=== PATIENT | female | born 1985 | race Caucasian/White ===

== ENCOUNTER 2017-01-30 19:21 | Emergency (ER) | payer MEDICAID ==
[~2017-01-30] VITALS: Ht 170.2 cm; Wt 86.3 kg
[~2017-01-30 19:21] MED LIST: FERR-55 PO; FOL8 PO; PREN1TAB17 PO
[2017-01-30 19:40] VITALS: Ht 170.2 cm; Wt 86.3 kg
--- NOTE | 2017-01-30 19:59 | ERD ---
ER Documentation Chief Complaint Date/Time DATE: 01/30/17 TIME: 19:56 Chief Complaint LLQ ABD PAIN INTERMITTENT X3 MONTHS HPI 31-year-old female presents here in emergency department for complaints of left lower quadrant abdominal pain radiate into her right lower quadrant for 3 months now, worsening last 2 days. Patient's complaining of nausea but denies any vomiting. Patient denies any constipation or diarrhea. Patient denies any flank pain. Patient does not have any fever or chills. Patient denies hematuria or dysuria. Patient denies any vaginal discharge. ROS All systems reviewed and are negative except as per history of present illness. Medications Home Meds Reported Medications Folic Acid* (Folic Acid*) 0.8 Mg Tablet, 0.8 MG PO DAILY 09/03/13 Ferrous Sulfate* (Ferrous Sulfate*) 325 Mg Tablet, 325 MG PO DAILY 08/29/13 Vit-Iron Fumarate-FA ( Tablet) 1 Each Tablet, 1 EACH PO DAILY 08/29/13 Allergies Allergies: Coded Allergies: No Known Allergy (Unverified , 03/02/15) PMhx/Soc Medical and Surgical Hx: pt denies Medical Hx History of Surgery: Yes (2 ) Anesthesia Reaction: No Hx Neurological Disorder: No Hx Respiratory Disorders: No Hx Cardiac Disorders: No Hx Psychiatric Problems: No Hx Miscellaneous Medical Probl: No Hx Alcohol Use: No Hx Substance Use: No Hx Tobacco Use: No Smoking Status: Never smoker FmHx Family History: No coronary disease, No diabetes, No other Physical Exam Vitals Vital Signs Date Time Temp Pulse Resp B/P Pulse Ox O2 Delivery O2 Flow Rate FiO2 01/30/17 19:40 98.6 85 20 129/64 100 Physical Exam GENERAL: The patient is well developed and appropriate for usual state of health, in no apparent distress. CHEST: Clear to auscultation bilaterally. There are no rales, wheezes or rhonchi. HEART: Regular rate and rhythm. No murmurs, clicks, rubs or gallops. No S3 or S4. ABDOMEN: Soft, nontender and nondistended. Good bowel sounds. No rebound or guarding. No gross peritonitis. No gross organomegaly or masses. No Warren sign or McBurney point tenderness. BACK: No midline or flank tenderness. EXTREMITIES: Equal pulses bilaterally. There is no peripheral clubbing, cyanosis or edema. No focal swelling or erythema. Full range of motion. Grossly neurovascularly intact. NEURO: Alert and oriented. Cranial nerves 2-12 intact. Motor strength in all 4 extremities with 5/5 strength. Sensation grossly intact. Normal speech and gait. SKIN: There is no apparent rash or petechia. The skin is warm and dry. HEMATOLOGIC AND LYMPHATIC: There is no evidence of excessive bruising or lymphedema. No gross cervical, axillary, or inguinal lymphadenopathy. Result Diagram: 01/30/17201701/30/172017 Results 24 hrs Laboratory Tests Test 01/30/17 20:18 Alanine Aminotransferase (ALT/SGPT) 50IU/L Albumin 4.2g/dl Albumin/Globulin Ratio 1.27 Alkaline Phosphatase 77IU/L Anion Gap 16 Aspartate Amino Transf (AST/SGOT) 29IU/L Basophils # 0.010^3/ul Basophils % 0.3% Blood Urea Nitrogen 11mg/dl Calcium Level 9.2mg/dl Carbon Dioxide Level 28mmol/L Chloride Level 102mmol/L Creatinine 0.73mg/dl Direct Bilirubin 0.00mg/dl Eosinophils # 0.110^3/ul Eosinophils % 0.9% Globulin 3.30g/dl Glucose Level 76mg/dl Hematocrit 34.2% Hemoglobin 11.1g/dl Indirect Bilirubin 0.1mg/dl Lipase 68U/L Lymphocytes # 2.310^3/ul Lymphocytes % 25.4% Mean Corpuscular Hemoglobin 27.0pg Mean Corpuscular Hemoglobin Concent 32.5g/dl Mean Corpuscular Volume 83.2fl Mean Platelet Volume 11.2fl Monocytes # 1.010^3/ul Monocytes % 11.1% Neutrophils # 5.610^3/ul Neutrophils % 62.1% Nucleated Red Blood Cells # 0.010^3/ul Nucleated Red Blood Cells % 0.0/100WBC Platelet Count 58104^3/UL Potassium Level 3.9mmol/L Red Blood Count 4.1110^6/ul Red Cell Distribution Width 16.4% Sodium Level 142mmol/L Total Bilirubin 0.1mg/dl Total Protein 7.5g/dl Urine Bilirubin NEGATIVE Urine Clarity CLEAR Urine Color LT. YELLOW Urine Glucose NEGATIVE% Urine Hemoglobin NEGATIVE Urine Ketones NEGATIVE Urine Leukocyte Esterase NEGATIVE Urine Nitrite NEGATIVE Urine Specific [place] 1.015 Urine Total Protein NEGATIVE Urine Urobilinogen 0.2 E.U./dL Urine pH 6.0 White Blood Count 9.010^3/ul Current Medications Medications (Trade) Dose Ordered Sig/Juancho Route PRN Reason Start Time Stop Time Status Last Admin Dose Admin Acetaminophen/ Hydrocodone Bitart ([place] (5/325)) 1 tab ONCE ONCE PO 01/30/17 22:00 01/30/17 22:01 01/30/17 21:47 Ondansetron HCl (Zofran Odt) 4 mg ONCE STAT ODT 01/30/17 21:40 01/30/17 21:41 DC 01/30/17 21:47 PROCEDURE: Pelvic ultrasound. CLINICAL INDICATION: Pelvic pain TECHNIQUE: Lino scale, color doppler, spectral doppler ultrasound of the pelvis was performed with transabdominal and transvaginal transducers. COMPARISON: 08/29/2013 FINDINGS: Uterus: Position: Retroflexed Normal myometrial echogenicity. Normal appearance of the endometrium. Ovaries: Normal sized ovaries with preserved blood flow. No adnexal masses. A few normal appearing sub-centimeter follicles are seen in each ovary. Free fluid: Minimal Measurements: Endometrium: 0.65 cm Uterus: 5.9 x 5.8 x 2.8 cm Right ovary: 1.8 x 2.1 x 2.8 cm Left ovary: 3.1 x 2.0 x 2.4 cm IMPRESSION: Minimal free fluid, otherwise normal examination. RPTAT: AADD .Ashok Rolon MD, MD Date Time Electronically viewed and signed by .Ashok Rolon MD, on 01/30/2017 20:49 FINDINGS: Lungs: Minimal dependent atelectasis is seen in the posterior lower lungs. Minimal linear atelectasis/fibrosis is seen at the lung bases. Liver: No abnormality seen. Gallbladder: No abnormality seen. Spleen: No abnormality seen. Stomach: Food material/debris, fluid and air in the stomach. Pancreas: No abnormality seen. Adrenals: No abnormality seen. Kidneys: No abnormality seen. Abdominal aorta: No aneurysm seen. Lymph nodes: There are multiple less than 1 cm short axis lymph nodes in the mesentery in the right lower quadrant of the abdomen which could be due to mesenteric adenitis. There is an approximate 1.5 cm short axis lymph node in the right lower inguinal / upper femoral region with central decreased density at the upper limit of normal for size. Small bowel: No dilated small bowel loops are seen. Colon: No abnormality seen. Appendix: No abnormality seen. Bladder: No abnormality seen Pelvic organs: No abnormality seen Ascites: Small amount of free fluid in cul-de-sac Osseous structures: Mild facet hypertrophy in the lower lumbar spine. Small Schmorl's nodes in lumbar spine. Mild degenerative disk changes in visualized lower thoracic spine. IMPRESSION: Small amount of free fluid in cul-de-sac which may be physiologic. Multiple less than 1 cm short axis lymph nodes in the mesentery in the right lower quadrant of the abdomen which could be due to mesenteric adenitis. Please see above. RPTAT: HJES .Richard Lamb MD, MD Date Time Electronically viewed and signed by .Richard Lamb MD, MD on 01/30/2017 21:40 .S/ CC: LENORA KC CORRECTIVE AND MANUAL ARTS THERAPIST Procedures/MDM Medical Decision Making: Patient symptoms most likely consistent with mesenteric adenitis as in the CT scan abdomen and pelvis. There is low suspicion for abdominal emergencies at this time. Patients abdominal exam is normal at this time. Patients radiology exam does not show any abdominal emergencies at this time. There is low suspicion for appendicitis, ovarian torsion, cholecystitis, abdominal aortic aneurysms or peritonitis at this time. There is low suspicion for sepsis. Patient appears well and is hemodynamically stable. Disposition: Home. Condition: Stable Prescription [place], ibuprofen, Zofran Instructions: Patient is advised to take medications as prescribed. Patient is advised to rest, increase fluid intake and do brat diet for next 1-2 days and progress as tolerated. Patient is advised that if symptoms are worse, severe abdominal pain, uncontrolled vomiting, high fever, severe flank pain, worst signs and symptoms, to return to the emergency department immediately. Otherwise, patient can follow up with primary care doctor in 5-7 days. Departure Diagnosis: Primary Impression: Mesenteric adenitis Condition: Stable Patient Instructions: Adenitis, Mesenteric Additional Instructions: Patient is advised to take medications as prescribed. Patient is advised to rest , increase fluid intake and do brat diet for next 1-2 days and progress as tolerated. Patient is advised that if symptoms are worse, severe abdominal pain , uncontrolled vomiting, high fever, severe flank pain, worst signs and symptoms , to return to the emergency department immediately. Otherwise, patient can follow up with primary care doctor in 5-7 days. LENORA KC NP Jan 30, 2017 19:58
[2017-01-30 20:28] LABS: ADD SCAN DIFF NO
[2017-01-30 20:29] LABS: ADD UMIC NO; URINE BILIRUBIN (Dip) NEGATIVE (NEGATIVE); URINE BLOOD (Dip) NEGATIVE (NEGATIVE); URINE COLOR LT. YELLOW (YELLOW); URINE GLUCOSE (Dip) NEGATIVE (NEGATIVE); URINE KETONES (Dip) NEGATIVE (NEGATIVE); URINE LEUKOCYTE ESTERASE (Dip) NEGATIVE (NEGATIVE); URINE NITRITE (Dip) NEGATIVE (NEGATIVE); URINE TOTAL PROTEIN (Dip) NEGATIVE (NEGATIVE); URINE UROBILINOGEN (Dip) 0.2 E.U./dL (0.1-1.0)
[2017-01-30 20:31] LABS: BASOPHILS % 0.3 % (0.0-2.0); EOSINOPHILS # 0.1 10^3/ul (0.0-0.5); EOSINOPHILS % 0.9 % (0.0-7.0); HEMATOCRIT 34.2 % (37.0-47.0); HEMOGLOBIN 11.1 g/dl (12.0-16.0); LYMPHOCYTES # 2.3 10^3/ul (0.8-2.9); LYMPHOCYTES % 25.4 % (15.0-51.0); MEAN CORPUSCULAR HGB CONC 32.5 g/dl (32.0-37.0); MEAN CORPUSCULAR VOLUME 83.2 fl (82.0-101.0); MEAN PLATELET VOLUME 11.2 fl (7.4-10.4); MONOCYTES % 11.1 % (0.0-11.0); NEUTROPHIL # 5.6 10^3/ul (1.6-7.5); NEUTROPHILS % 62.1 % (39.0-77.0); PLATELET COUNT 348 10^3/UL (140-415); RED BLOOD COUNT 4.11 10^6/ul (4.20-5.40); RED CELL DISTRIBUTION WIDTH 16.4 % (11.5-14.5)
[2017-01-30 20:42] LABS: ALBUMIN 4.2 g/dl (3.3-4.9); POTASSIUM 3.9 mmol/L (3.5-5.1)
[2017-01-30 20:44] LABS: CREATININE 0.73 mg/dl (0.44-1.00)
[2017-01-30 20:45] LABS: ALBUMIN/GLOBULIN RATIO 1.27; BILIRUBIN,INDIRECT 0.1 mg/dl (0-1.1); BILIRUBIN,TOTAL 0.1 mg/dl (0.2-1.3); CALCIUM 9.2 mg/dl (8.4-10.2); TOTAL PROTEIN 7.5 g/dl (6.1-8.1)
--- NOTE | 2017-01-30 20:49 | RADRPT ---
PROCEDURE: Pelvic ultrasound. CLINICAL INDICATION: Pelvic pain TECHNIQUE: Lino scale, color doppler, spectral doppler ultrasound of the pelvis was performed with transabdominal and transvaginal transducers. COMPARISON: 08/29/2013 FINDINGS: Uterus: Position: Retroflexed Normal myometrial echogenicity. Normal appearance of the endometrium. Ovaries: Normal sized ovaries with preserved blood flow. No adnexal masses. A few normal appearing sub-centimeter follicles are seen in each ovary. Free fluid: Minimal Measurements: Endometrium: 0.65 cm Uterus: 5.9 x 5.8 x 2.8 cm Right ovary: 1.8 x 2.1 x 2.8 cm Left ovary: 3.1 x 2.0 x 2.4 cm IMPRESSION: Minimal free fluid, otherwise normal examination. RPTAT: AADD .Ashok Rolon MD, MD Date Time Electronically viewed and signed by .Ashok Rolon MD, on 01/30/2017 20:49 .B/
[2017-01-30] MEDS ORDERED: ONDANSETRON (ODT) 4 MG TAB ODT STA (21:40)
--- NOTE | 2017-01-30 21:40 | RADRPT ---
PROCEDURE: CT Abdomen and Pelvis without contrast. CLINICAL INDICATION: Abdominal pain TECHNIQUE: CT scan of the abdomen and pelvis without contrast was performed on a multidetector hig h-resolution CT scanner. The patient was scanned without intravenous contrast. No oral contrast was administered. Coronal and sagittal reformatted images were obtained from the axial source images. Im ages were reviewed on a high-resolution PACS workstation. The total exam CTDI equals 16.95 mGy and the total exam DLP equals 1053.81 mGy-cm. One or more of the following dose reduction techniques were used: - Automated exposure control. - Adjustment of the mA and/or kV according to patient size. - Use of iterative reconstruction technique. COMPARISON: Pelvic ultrasound of 01/30/2017 FINDINGS: Lungs: Minimal dependent atelectasis is seen in the posterior lower lungs. Minimal linear atelectas is/fibrosis is seen at the lung bases. Liver: No abnormality seen. Gallbladder: No abnormality seen. Spleen: No abnormality seen. Stomach: Food material/debris, fluid and air in the stomach. Pancreas: No abnormality seen. Adrenals: No abnormality seen. Kidneys: No abnormality seen. Abdominal aorta: No aneurysm seen. Lymph nodes: There are multiple less than 1 cm short axis lymph nodes in the mesentery in the right lower quadrant of the abdomen which could be due to mesenteric adenitis. There is an approximate 1. 5 cm short axis lymph node in the right lower inguinal / upper femoral region with central decreased density at the upper limit of normal for size. Small bowel: No dilated small bowel loops are seen. Colon: No abnormality seen. Appendix: No abnormality seen. Bladder: No abnormality seen Pelvic organs: No abnormality seen Ascites: Small amount of free fluid in cul-de-sac Osseous structures: Mild facet hypertrophy in the lower lumbar spine. Small Schmorl's nodes in lumb ar spine. Mild degenerative disk changes in visualized lower thoracic spine. IMPRESSION: Small amount of free fluid in cul-de-sac which may be physiologic. Multiple less than 1 cm short axi s lymph nodes in the mesentery in the right lower quadrant of the abdomen which could be due to mese nteric adenitis. Please see above. RPTAT: HJES .Richard Lamb MD, MD Date Time Electronically viewed and signed by .Richard Lamb MD, on 01/30/2017 21:40 .S/
[2017-01-30] MEDS ORDERED: IBUP-1542 PO (21:53)
[2017-01-30] MEDS ORDERED: HYDR-906 PO (21:53)
[2017-01-30] MEDS ORDERED: ONDA4TAB14 PO (21:53)
[2017-01-30] MEDS ORDERED: HYDROCODONE/APAP (5/325) TAB PO ONE (22:00)
[2017-01-30 22:11] VITALS: BP 128/64; PULSE 76; RESP 18; TEMP 98.6
== END 2017-01-30 22:56 | disposition home or self-care (01) ==
LOC: FTE 19:21
DX: I88.0 Nonspecific mesenteric lymphadenitis (principal); R11.0 Nausea; R10.2 Pelvic and perineal pain
CPT/HCPCS: 36415; 74176; 76830; 76856; 80053; 81003; 83690; 85025; Z7502; Z7610

== ENCOUNTER 2017-02-21 08:40 | Emergency (ER) | payer MEDICAID ==
[~2017-02-21] VITALS: Wt 100.0 kg
[~2017-02-21 08:40] MED LIST changes: +HYDR-906 PO; +IBUP-1542 PO; +ONDA4TAB14 PO
[2017-02-21] MEDS ORDERED: IBUP-1542 PO (09:42)
[2017-02-21] MEDS ORDERED: PEN500 PO (09:42)
--- NOTE | 2017-02-21 09:49 | ERD ---
ER Documentation Chief Complaint Date/Time DATE: 02/21/17 TIME: 09:45 Chief Complaint sore throat and ear pain for the past few days. no distress. no cough HPI 31-year-old female complaining of sore throat and fever 5 days. T-max at home was 103.1. She has trouble eating because of pain. Has slight nasal congestion but no cough. Patient also complaining of left ear pain. Denies shortness of breath. Denies abdominal pain, vomiting, or diarrhea ROS All systems reviewed and are negative except as per history of present illness. Medications Home Meds Active Scripts Ibuprofen* (Motrin*) 600 Mg Tab, 600 MG PO Q6H Y for PAIN AND OR ELEVATED TEMP, #30 TAB Prov:HAN DE SOUZA BOOK STORE ASSOCIATE 02/21/17 Penicillin V Potassium* (Penicillin V K*) 500 Mg Tab, 500 MG PO BID for 10 Days , TAB Prov:HAN DE SOUZA BOOK STORE ASSOCIATE 02/21/17 Ondansetron (Ondansetron Odt) 4 Mg Tab.rapdis, 4 MG PO Q8 Y for NAUSEA AND/OR VOMITING, #30 TAB Prov:LENORA KC NP 01/30/17 Hydrocodone/Acetaminophen ([place] 5-325 Tablet) 1 Each Tablet, 1 TAB PO Q6H Y for SEVERE PAIN LEVEL 7-10, #20 TAB Prov:LENORA KC NP 01/30/17 Ibuprofen* (Motrin*) 600 Mg Tab, 600 MG PO Q6H Y for PAIN AND OR ELEVATED TEMP, #30 TAB Prov:LENORA KC BOOK STORE ASSOCIATE 01/30/17 Reported Medications Folic Acid* (Folic Acid*) 0.8 Mg Tablet, 0.8 MG PO DAILY 09/03/13 Ferrous Sulfate* (Ferrous Sulfate*) 325 Mg Tablet, 325 MG PO DAILY 08/29/13 Vit-Iron Fumarate-FA ( Tablet) 1 Each Tablet, 1 EACH PO DAILY 08/29/13 Allergies Allergies: Coded Allergies: No Known Allergy (Unverified , 03/02/15) PMhx/Soc History of Surgery: Yes (2 ) Anesthesia Reaction: No Hx Neurological Disorder: No Hx Respiratory Disorders: No Hx Cardiac Disorders: No Hx Psychiatric Problems: No Hx Miscellaneous Medical Probl: No Hx Alcohol Use: No Hx Substance Use: No Hx Tobacco Use: No Physical Exam Vitals Vital Signs Date Time Temp Pulse Resp B/P Pulse Ox O2 Delivery O2 Flow Rate FiO2 02/21/17 08:47 98.9 76 21 125/74 99 Physical Exam General impression: Well-developed, well-nourished. Alert, oriented, in no acute distress Head: Normocephalic, atraumatic. Eyes: PERRL, EOM normal. Conjunctiva not injected. ENT: External canals clear. TM's pearly la, slightly bulging bilaterally. Nasal mucosa boggy and swollen. Oral mucosa normal. Oropharynx erythematous and swollen with purulent exudate. Neck: Supple, nontender. No lymphadenopathy. No nuchal rigidity. Respiration: Normal respiratory effort. Lungs clear to auscultate bilaterally. No wheezes, rales or rhonchi. Cardiovascular: Regular rate and rhythm. No murmurs or extra heart sounds. Neuro: Mental status normal, speech normal. SENIOR BUSINESS DEVELOPMENT MANAGER grossly intact. Skin: Normal turgor. No rash or lesions. Psych: Normal mood and affect. Procedures/MDM Well-appearing 31-year-old female presented to ED with sore throat and fever 5 days. Patient symptoms and exam findings are consistent with strep pharyngitis. Although treat her with empiric antibiotics. Patient also complaining of left ear pain. She did not have any signs of acute otitis media on exam. Likely her ear pain is due to serous otitis media secondary to nasal congestion, likely from allergic rhinitis. Patient is afebrile, in no respiratory distress. Lungs are clear to auscultate. I doubt that patient has pneumonia or bronchitis. Patient appears well, stable for discharge and outpatient management. Medical decision making shared with patient and family. Education provided to patient and family. Patient and family expressed understanding of the plan. Medications on discharge: Ibuprofen, Penicillin VK. Follow-up: Primary care provider in 2-3 days or return to ED if worse. Departure Diagnosis: Primary Impression: Strep pharyngitis Condition: Good Patient Instructions: Pharyngitis, Strep (Presumed) [facility] Usted se diamond hecho un examen mdico de control que le indica que no est en delroy condicin que requiera tratamiento urgente en el Departamento de Emergencia. Un estudio ms profundo y el tratamiento de zamora condicin pueden esperar sin ningn riesgo hasta que usted sea atendida/o en el consultorio de zamora mdico o delroy cl eddie. Es responsabilidad suya arreglar delroy sarah para el seguimiento del fide. MANEJO DE CONDICIONES NO URGENTES EN EL FUTURO 1) Si usted tiene un mdico de atencin primaria: Usted debera llamar a zamora mdico de atencin primaria antes de venir al departamento de emergencia. Despus de las horas de consultorio, zamora doctor o zamora asociado/a est disponible por telfono. El mdico o enfermero de ivan en el servicio telefnico puede asesorarle por marcia medio para atender el problema, o fide contrario se puede programar delroy sarah. 2) Si usted no tiene un mdico de atencin primaria: Llame al mdico o clnica de referencia que aparece abajo valerie las horas de consultorio para hacer delroy sarah para que le vean. CLINICAS: [place] [id number] [phone] [facility] [facility] [phone] [facility] [facility] [phone] [facility] [place] [id number] [phone] [facility]. [place] [id number] [phone] [facility]. [phone] [address] Additional Instructions: Llame al doctor MAANA y estuardo delroy SARAH PARA DENTRO DE 2-3 DE LA CRUZ.Dgale a la secretaria que nosotros le instruimos hacer esta sarah.Avise o llame si zamora condicin se empeora antes de la sarah. Regresa aqui si peor o no mejor. HAN DE SOUZA NP 27, 2017 09:49
== END 2017-02-21 09:55 | disposition home or self-care (01) ==
LOC: FTE 08:40
DX: J02.0 Streptococcal pharyngitis (principal)
CPT/HCPCS: 99283

== ENCOUNTER 2017-11-02 08:47 | Outpatient (CLI) | payer MEDICAID ==
[~2017-11-02] VITALS: Ht 167.6 cm; Wt 139.4 kg
[~2017-11-02 08:47] MED LIST changes: +PENI500T PO
[2017-11-02 09:15] VITALS: BP 131/61; PULSE 83; RESP 17
--- NOTE | 2017-11-02 10:19 | RADRPT ---
PROCEDURE: Obstetrical ultrasound for biophysical profile CLINICAL INDICATION: Biophysical profile. . TECHNIQUE: Obstetrical ultrasound of the uterus for biophysical profile. Transabdominal views are obtained. COMPARISON: US PELVIS 01/30/2017 FINDINGS: Single intrauterine gestation. Presentation: Transverse Placenta: Anterior. No evidence of placental abruption. No evidence of placenta previa. breathing movement = 2/2 tone = 2/2 motion = 2/2 NICKIE = 2/2 NICKIE = 15.9 cm heart rate: 144 beats per minute IMPRESSION: Single intrauterine gestation. Biophysical profile 07/05 RPTAT: AADD .Ashok Rolon MD, MD Date Time Electronically viewed and signed by .Ashok Rolon MD, on 11/02/2017 10:19 .B/
--- NOTE | 2017-11-02 12:21 | PN ---
Triage Information Date/Time November 02, 2017 Reason for visit: DFM Weeks of Gestation 24 weeks and 5 days /Para 4 para 3 Diabetes: none Hypertention: none Additional information 32-year-old with IUP at 24 weeks and 5 days and morbid obesity presents with complaint of decreased movement since yesterday. She denies any leaking of fluid, vaginal bleeding or any other complaints. Antepartum course except morbid obesity, no other complication Objective Vital Signs Date Time Temp Pulse Resp B/P Pulse Ox O2 Delivery O2 Flow Rate FiO2 11/02/17 09:15 98.1 83 17 131/61 98 Room Air Heart Rate: 130's Contractions: None Exam General appearance: Alert and oriented 4. Does not appear to be in any acute distress. Morbidly obese Abdomen: Soft, gravid, fundal height consistent with gestational age, no abdominal tenderness, no rebound tenderness, no rigidity NST: Appropriate for gestational age. No contraction on toco noted on the monitor Extremities: No calf tenderness, no click no edema BPP: 07/05 Results/Medications Imaging Results PROCEDURE: Obstetrical ultrasound for biophysical profile CLINICAL INDICATION: Biophysical profile. . TECHNIQUE: Obstetrical ultrasound of the uterus for biophysical profile. Transabdominal views are obtained. COMPARISON: US PELVIS 01/30/2017 FINDINGS: Single intrauterine gestation. Presentation: Transverse Placenta: Anterior. No evidence of placental abruption. No evidence of placenta previa. breathing movement = 2/2 tone = 2/2 motion = 2/2 NICKIE = 2/2 NICKIE = 15.9 cm heart rate: 144 beats per minute IMPRESSION: Single intrauterine gestation. Biophysical profile 07/05 RPTAT: AADD Disposition: Discharge Assessment/Plan Follow-up with OB clinic next available to us sooner as needed any other contraction decreased movement vaginal bleeding or any other concern Patient verbalized understanding Advice about nutritional consultation dietary instruction in avoiding of carbohydrate increased. Protein and vegetables discussed with the patient to decrease weight gain during Risk of complications of obesity discussed with the patient including labor, , macrosomia, gestational diabetes and preeclampsia and etc all questions were answered. CHANTE HAYWARD MD Nov 02, 2017 12:21
[2017-11-02] MEDS ORDERED: INFLUENZA VIRUS VACCINE 0.5 ML SYG IM* ONE (18:00)
== END 2017-11-02 11:40 | disposition home or self-care (01) ==
LOC: OBT 08:47 → L-D 08:47 → OBT 11:40
PROVIDERS: ATTEND Obstetrics & Gynecology
DX: O36.8120 Decreased fetal movements, second trimester, not applicable or unspecified (principal); Z3A.24 24 weeks gestation of pregnancy
CPT/HCPCS: 76818; Z7500; G0463

== ENCOUNTER 2017-12-17 20:26 | Outpatient (CLI) | END 2017-12-18 00:01 | disposition home or self-care (01) ==

== ENCOUNTER 2018-01-27 08:34 | Emergency (ER) | END 2018-01-27 09:50 | disposition home or self-care (01) ==

== ENCOUNTER 2018-02-05 04:59 | Inpatient (IN) | END 2018-02-08 12:40 | disposition home or self-care (01) | DRG 765 ==

== ENCOUNTER 2019-06-02 13:28 | Emergency (ER) | payer MEDICAID ==
[~2019-06-02] VITALS: Ht 167.6 cm; Wt 139.4 kg
[~2019-06-02 13:28] MED LIST changes: +CALC-516 PO; -FERR-55 PO; +FERR256T PO; -HYDR-906 PO; -IBUP-1542 PO; -ONDA4TAB14 PO; -PENI500T PO
[2019-06-02 13:34] VITALS: Ht 167.6 cm; Wt 139.4 kg
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
[2019-06-02] MEDS ORDERED: LORAZEPAM 1 MG TAB PO ONE (14:30)
[2019-06-02] MEDS ORDERED: ACETAMINOPHEN 325 MG TAB PO ONE (14:30)
[2019-06-02] MEDS ORDERED: LIDOCAINE 1% (MPF) 5 ML VIAL INFIL ONE (15:30)
[2019-06-02] MEDS ORDERED: CEFTRIAXONE 1 GM INJ IM ONE (15:30)
[2019-06-02] MEDS ORDERED: IBUP-1561 PO (15:33)
[2019-06-02] MEDS ORDERED: CEPH-443 PO (15:33)
[2019-06-02] MEDS ORDERED: ACET325T33 PO (15:33)
[2019-06-02 15:55] VITALS: BP 131/81; PULSE 98; RESP 18
== END 2019-06-02 15:56 | disposition home or self-care (01) ==
LOC: FTE 13:28
DX: O91.23 Nonpurulent mastitis associated with lactation (principal); R00.2 Palpitations; X34.XXXA Earthquake, initial encounter
CPT/HCPCS: 36415; 80048; 81003; 81025; 85025; 93005; 96372; J0696; Z7502; Z7610

== ENCOUNTER 2019-06-16 19:28 | Emergency (ER) | payer MEDICAID ==
[~2019-06-16] VITALS: Ht 167.6 cm; Wt 141.2 kg
[~2019-06-16 19:28] MED LIST changes: +ACET325T33 PO; +ACET500C5 PO; +CEPH-443 PO; +FAMO-96 PO; +IBUP-1561 PO; +NAPR-985 PO; +ONDA4TAB14 PO
[2019-06-16 19:36] VITALS: BP 121/73; PULSE 89; RESP 20; Ht 167.6 cm; Wt 141.2 kg
[2019-06-16] MEDS ORDERED: BELLADONNA/PHENOBARBITAL TAB PO ONE (20:30)
[2019-06-16] MEDS ORDERED: LIDOCAINE/MYLANTA 40 ML BTL PO ONE (20:30)
[2019-06-16] MEDS ORDERED: ACETAMINOPHEN 500 MG TAB PO STA (21:56)
[2019-06-16] MEDS ORDERED: ONDANSETRON (ODT) 4 MG TAB ODT STA (21:57)
[2019-06-16] MEDS ORDERED: FAMOTIDINE 20 MG TAB PO ONE (22:00)
== END 2019-06-16 22:51 | disposition home or self-care (01) ==
LOC: FTE 19:28
DX: K21.9 Gastro-esophageal reflux disease without esophagitis (principal)
CPT/HCPCS: 81003; 81025; Z7610; 99283